=== PATIENT | female | born 1955 | race Caucasian/White ===

== ENCOUNTER → 2020-11-14 | Outpatient (CLI) | payer MEDICARE, OTHER ==
[~2020-11-14] MED LIST: ATORVASTATIN CA10 MG PO; DULOXETINE HCL20 MG PO; FLUOXETINE HCL40 MG PO; LEVOTHYROXINE112 MCG PO; LISINOPRIL10 MG PO; XANAX 0.25 MG0.25 MG PO
== END ==
DX: Z12.31 Encounter for screening mammogram for malignant neoplasm of breast (principal)
CPT/HCPCS: 77063; 77067